=== PATIENT | male | born 1940 | race Caucasian/White ===

== ENCOUNTER → 2016-11-19 | Outpatient (CLI) | payer MEDICARE, BC ==
--- NOTE | 2016-11-19 10:24 | US ---
EXAMINATION TYPE: US renal artery duplex completa DATE OF EXAM: 11/19/2016 COMPARISON: CT CLINICAL HISTORY: E11.59 Type II diabetes/I10 hypertension. MEASUREMENTS: RENAL SIZE: Rt Kidney: 13.7 x 5.7 x 5.8 cm Lt Kidney: 15.9 x 7.4 x 6.7 RESISTANCE INDEX Right: 0.64 Left: 0.64 RA/AO RATIO (< 3.5 ) Right: 2.2 Left: 2.0 RA VELOCITY ( < 180 cm/s) Right: 163 Left: 156 patient states right renal stent. Limited vis due to patient body habitus. No ultrasound evidence for renal artery stenosis. Good upstroke on segmentals at renal hilum. Low resistive waveforms throughou t. IMPRESSION: Study limited by patient morphology demonstrates no evidence of renal artery stenosis.
== END | disposition home or self-care (01) ==
LOC: RADUSMAIN 08:53
PROVIDERS: ATTEND Internal Medicine Cardiovascular Disease
DX: E11.59 Type 2 diabetes mellitus with other circulatory complications (principal); I10 Essential (primary) hypertension; I87.2 Venous insufficiency (chronic) (peripheral)
CPT/HCPCS: 93975

== ENCOUNTER → 2019-05-06 | Outpatient (CLI) | payer MEDICARE, BC ==
--- NOTE | 2019-05-06 21:28 | CONS ---
CONSULTATION DATE OF SERVICE: 05/06/2019 79-year-old gentleman has been re-evaluated in Sleep Center for obstructive sleep apnea- hypopnea syndrome. HISTORY OF PRESENT ILLNESS/SLEEP WAKE EVALUATION: The patient has history of obstructive sleep apnea for about 8 years. For that time, he is using his CPAP equipment every night for the whole night. Recently, his CPAP unit started to work properly. SLEEP SCHEDULE: His sleep schedule from 9:30 pm until 4:30 am. FALLING ASLEEP: He does not have any problem with falling asleep, although has TV set in bedroom. DURING SLEEP: Usually sleeps on the side position. He wakes up from sleep 2 times with nocturia. DURING THE DAY/SLEEP WAKE EVALUATION: During the day, he may have 1 nap at 1:00 pm. [place] Sleepiness Scale is 7. PAST MEDICAL HISTORY: Positive for hypertension, coronary artery disease, atrial fibrillation, hyperlipidemia, diabetes mellitus, a bladder carcinoma. PAST SURGICAL HISTORY: CABG, insertion of permanent pacemaker, and surgery for bladder CA in 1984. MEDICATIONS: Cozaar, Neurontin, Lopressor, glipizide, Eliquis, Plavix, Norvasc, Lipitor, iron supplement, . SOCIAL HISTORY: The patient quit smoking in 1981. Alcohol consumption up to 2 times per week. FAMILY HISTORY: Hyperlipidemia, cancer, diabetes. REVIEW OF SYSTEMS: Occasional awakenings from sleep. PHYSICAL EXAM: A gentleman without distress. BP 138/79, HR 73, RR 18, height 6 feet 0, weight 294.6, body mass index 39.6, temperature 98.1. Oxygen saturation at room air 95%. HEENT: Oropharynx extremely low position of soft palate. Mallampati 3 to 4. Slight restriction of nasal breathing. NECK: Supple, no JVD. Thyroid is not palpable. LUNGS: Clear to percussion and to auscultation. Good air exchange. No wheezing or rhonchi. HEART: S1, S2 regular. No murmurs, gallops, or rubs. ABDOMEN: Obese. Soft and nontender. Bowel sounds are present. No organomegaly appreciated. EXTREMITIES: Tendency for swelling of ankles. CHECKER: Awake, alert, and oriented X3. Cranial nerves 2 to 7 intact. There is no fasciculation or atrophy. noted. No focal deficits observed. IMPRESSION: 1. Obstructive sleep apnea-hypopnea syndrome for many years. The patient continued to use his CPAP equipment. At present, his CPAP unit is not working properly. 2. Extremely low position of soft palate, Mallampati 4, wide neck, 17-1/2 inches in circumference, awakening from sleep with nocturia. Obstructive sleep apnea- hypopnea syndrome. 3. Obesity, BMI 39.6. 4. Hypertension. 5. Coronary artery disease, status post coronary artery bypass grafting. 6. History of atrial fibrillation. 7. Status post permanent pacemaker insertion. 8. Hyperlipidemia. 9. Diabetes mellitus. 10.History of bladder carcinoma, status post surgical treatment in 1984. PLAN: 1. Prescription to replace CPAP unit replacement for the BiPAP unit. 2. The patient should continue to use BiPAP equipment every night for the whole night. 3. Losing weight. 4. Sleep hygiene with regular time in bed for at least 8 hours. 5. No driving if feeling sleepiness. 6. Followup visit in 1 month after patient will get new BiPAP unit to evaluate clinical response of treatment, compliance with treatment and make any necessary adjustments related to mask fitting, pressure and humidification. Thank you very much for allowing me to participate in management of your patient. Sincerely, Jose Antonio Stephens MD, PhD, FAASM Diplomat of [employer] Proposal Consultant of [facility] [place] MMODL / TYLORN: [id number] /
== END ==
LOC: SLEEP 15:18
PROVIDERS: ATTEND Internal Medicine
DX: G47.33 Obstructive sleep apnea (adult) (pediatric) (principal); E66.9 Obesity, unspecified; I25.10 Atherosclerotic heart disease of native coronary artery without angina pectoris; I48.91 Unspecified atrial fibrillation; E78.5 Hyperlipidemia, unspecified; E11.9 Type 2 diabetes mellitus without complications; C67.9 Malignant neoplasm of bladder, unspecified; I10 Essential (primary) hypertension; Z98.890 Other specified postprocedural states; Z95.5 Presence of coronary angioplasty implant and graft; Z95.0 Presence of cardiac pacemaker; Z68.39 Body mass index [BMI] 39.0-39.9, adult; Z99.89 Dependence on other enabling machines and devices; Z87.891 Personal history of nicotine dependence; Z79.899 Other long term (current) drug therapy; Z79.01 Long term (current) use of anticoagulants
CPT/HCPCS: 99211

== ENCOUNTER → 2019-08-26 | Outpatient (CLI) | payer MEDICARE, BC ==
--- NOTE | 2019-08-26 16:19 | PN ---
PROGRESS NOTE DATE OF SERVICE: 08/26/2019 This patient is a 79-year-old gentleman who has been followed in Sleep Center for treatment of obstructive sleep apnea-hypopnea syndrome. Recently he received a new CPAP machine. Today is his first visit after starting to use his new CPAP unit. The patient is able to use CPAP equipment every night for the whole night without problems related to mask fitting, pressure or humidification. He likes the new machine. [place] Sleepiness Scale today is 6. I checked his BiPAP unit. Pressure is 11/7 cm of water. The patient uses it every night, and 28/30 nights for more than 4 hours during the last month, with average usage 6.8 hours per night. Leak is slightly high 35 L/minute. Possibly he opens his mouth. He is using a nasal mask. At the same time, apnea-hypopnea index is only 2.8, which is absolutely perfect. MEDICATIONS: Cozaar, Eliquis, metoprolol, Plavix, glipizide, hydrocodone, Norvasc, Lipitor, hygroton and Trilipix. PHYSICAL EXAMINATION: GENERAL: A pleasant patient in no distress. VITAL SIGNS: BP 134/74, HR 78, RR 15, height 6 feet 1/4 inch, weight 295.2 pounds, BMI 39.7, temperature 97.2, oxygen saturation at room air 96%. HEENT: PERRLA, EOMI. Evaluation of oropharynx showed tongue protrudes midline. Low position of soft palate. Mallampati III to IV. NECK: Supple. No JVD. Thyroid is not palpable. LUNGS: Clear to percussion and to auscultation. Good air exchange. No wheezing or rhonchi. HEART: S1, S2 regular. No murmurs, gallops or rubs. ABDOMEN: Obese. EXTREMITIES: No clubbing or cyanosis. LEG MAN: Awake, alert, and oriented X3. Cranial nerves 2 to 7 intact. There is no fasciculation or atrophy. noted. No focal deficits observed. IMPRESSION: 1. Obstructive sleep apnea-hypopnea syndrome. Patient demonstrated practically 100% compliance with treatment, benefitting from treatment. Normal respiration on BiPAP. 2. Obesity. 3. Hypertension. 4. Coronary artery disease, status post coronary artery bypass grafting. 5. History of atrial fibrillation. 6. Status post permanent pacemaker insertion. 7. Hyperlipidemia. 8. Diabetes mellitus. 9. History of bladder carcinoma, status post surgical treatment in 1984. PLAN: 1. Patient will continue to use BiPAP equipment every night for the whole night. 2. Watching and losing weight. 3. Sleep hygiene with regular time in bed for at least 7-1/2 hours. 4. No driving if feeling any sleepiness. 5. I will maintain all necessary prescriptions for CPAP supplies, including mask, tube, filters. Thank you very much for allowing me to participate in the management of your patient. Sincerely, Jose Antonio Stephens MD, PhD, FAASM Diplomat of [employer] Bottle Packer of [facility] [place] MMODL / IJN: [id number] /
== END | disposition home or self-care (01) ==
LOC: SLEEP 14:23
PROVIDERS: ATTEND Internal Medicine
DX: G47.33 Obstructive sleep apnea (adult) (pediatric) (principal); E66.9 Obesity, unspecified; I10 Essential (primary) hypertension; I25.10 Atherosclerotic heart disease of native coronary artery without angina pectoris; E78.5 Hyperlipidemia, unspecified; E11.9 Type 2 diabetes mellitus without complications; Z85.51 Personal history of malignant neoplasm of bladder; Z86.79 Personal history of other diseases of the circulatory system; Z95.0 Presence of cardiac pacemaker; Z95.1 Presence of aortocoronary bypass graft; Z68.39 Body mass index [BMI] 39.0-39.9, adult; Z79.84 Long term (current) use of oral hypoglycemic drugs; Z79.1 Long term (current) use of non-steroidal anti-inflammatories (NSAID); Z79.891 Long term (current) use of opiate analgesic; Z79.899 Other long term (current) drug therapy

== ENCOUNTER → 2020-03-02 | Outpatient (CLI) | payer MEDICARE, BC ==
--- NOTE | 2020-03-03 00:58 | SFUN ---
SLEEP CENTER FOLLOW UP NOTE DATE OF SERVICE: 03/02/2020 This 80-year-old gentleman who has been followed in Sleep Center for treatment of obstructive sleep apnea-hypopnea syndrome. The patient successfully continues to use his CPAP equipment. He likes his BiPAP unit. [place] Sleepiness Scale today is 9. I checked his BiPAP unit. Pressure is 11/7 cm of water. Usage is 30 out of 30 nights for more than 4 hours. Average usage 8.9 hours per night. Leak is 30 L/minute which is slightly high but less than during the previous visit. Apnea-hypopnea index 1.2, which is normal. MEDICATIONS: Lipitor 40 mg, Cozaar 100 mg once a day, 25 mg once a day, Lopressor ER 50 mg once daily, Eliquis 5 mg b.i.d., glipizide ER 10 mg once a day, Norvasc 5 mg once a day at bedtime, fenofibrate 150 mg once a day at bedtime, Plavix 75 mg once a day, iron supplement. PHYSICAL EXAMINATION: GENERAL: Patient in no distress. VITAL SIGNS: BP 134/70, HR 60, RR 15, height 6 feet and a 1/2 inch, weight 291.2, BMI 38.9, temperature 98.1, oxygen saturation at room air 96%. HEENT: PERRLA, EOMI. Oropharynx low position of soft palate, Mallampati 3-4. NECK: Supple, no JVD. Thyroid is not palpable. LUNGS: Clear to percussion and to auscultation. Good air exchange. No wheezing or rhonchi. HEART: S1, S2 regular. No murmurs, gallops, or rubs. ABDOMEN: Obese. EXTREMITIES: No clubbing or cyanosis. RENTAL SALESPERSON: Awake, alert, and oriented X3. Cranial nerves 2 to 7 intact. There is no fasciculation or atrophy. noted. No focal deficits observed. IMPRESSION: 1. Obstructive sleep apnea-hypopnea syndrome. Patient demonstrated good compliance with treatment benefitting from treatment on BiPAP. 2. Hypertension. 3. Coronary artery disease, status post coronary artery bypass grafting. 4. Obesity. 5. History of atrial fibrillation. 6. Status post permanent pacemaker insertion. 7. Hyperlipidemia. 8. Diabetes mellitus. 9. History of bladder cancer, status post surgical treatment in 1984. PLAN: 1. Patient will continue to use PAP equipment every night for the whole night. 2. Sleep hygiene with regular time in bed for at least 7-1/2 to 8 hours. 3. Precautions related to driving. No driving if feeling sleepiness. 4. I will maintain all necessary prescription for PAP supplies including mask, tube, filters. 5. Watching weight. 6. No driving if feeling sleepiness. 7. Follow-up visit in 6 months or earlier if patient has any problems. Thank you very much for allowing me to participate in management of your patient. Sincerely, Jose Antonio Stephens MD, PhD, FAASM Diplomat of [place] [employer] [place] [employer] Dragger Out of [facility] [place] MMODL / IJN: [id number] /
== END | disposition home or self-care (01) ==
LOC: SLEEP 13:06
PROVIDERS: ATTEND Internal Medicine
DX: G47.33 Obstructive sleep apnea (adult) (pediatric) (principal); I10 Essential (primary) hypertension; I25.10 Atherosclerotic heart disease of native coronary artery without angina pectoris; E11.9 Type 2 diabetes mellitus without complications; E78.5 Hyperlipidemia, unspecified; E66.9 Obesity, unspecified; Z95.0 Presence of cardiac pacemaker; Z95.1 Presence of aortocoronary bypass graft; Z86.79 Personal history of other diseases of the circulatory system; Z85.51 Personal history of malignant neoplasm of bladder; Z99.89 Dependence on other enabling machines and devices

== ENCOUNTER → 2021-02-15 | Outpatient (CLI) | payer MEDICARE, BC ==
--- NOTE | 2021-02-15 18:22 | SFUN ---
SLEEP CENTER FOLLOW UP NOTE DATE OF SERVICE: 02/15/2021 This 81-year-old gentleman has been followed in Sleep Center for treatment of obstructive sleep apnea-hypopnea syndrome. The patient continues to use his CPAP equipment every night. [place] Sleepiness Scale is reduced to 6 compared to his previous visit. I checked his BiPAP unit. Pressure is 11/7 cm of water. Usage is 100% of nights for more than 4 hours, average 7.2 hours per night. Leak is 19 L/minute, which is borderline. Apnea-hypopnea index is only 1.4, which is perfect. CURRENT MEDICATIONS: 1. Losartan 100 mg once a day. 2. Pioglitazone 25 mg once a day. 3. Glipizide 10 mg once a day. 4. Metoprolol 25 mg once a day. 5. Eliquis 5 mg twice a day. 6. Norvasc 5 mg once a day. 7. Atorvastatin 40 mg once a day. 8. Fenofibrate 150 mg once a day. 9. Plavix 75 mg once a day. PHYSICAL EXAMINATION: GENERAL: Pleasant patient in no distress. VITAL SIGNS: BP 124/69, HR 81, RR 18, height 6 feet 1 inch, weight 291.2, temperature 97.4, oxygen saturation at room air 94%. Body mass index 38.6. HEENT: PERRLA, EOMI, evaluation of oropharynx showed tongue protrudes midline. Low position of soft palate; Mallampati III to IV. NECK: Supple, no JVD. Thyroid is not palpable. LUNGS: Clear to percussion and to auscultation. Good air exchange. No wheezing or rhonchi. HEART: S1, S2 regular. No murmurs, gallops, or rubs. ABDOMEN: Obese. EXTREMITIES: No clubbing or cyanosis. FRUIT AND VEGETABLE PARER: Awake, alert, and oriented X3. Cranial nerves 2 to 7 intact. There is no fasciculation or atrophy. noted. No focal deficits observed. IMPRESSION: 1. Obstructive sleep apnea-hypopnea syndrome. Patient demonstrated 100% compliance with treatment with BiPAP. Full normalization of respiration on treatment with BiPAP. 2. Hypertension. 3. Coronary artery disease, status post coronary artery bypass grafting. 4. Obesity. 5. History of atrial fibrillation. 6. Status post permanent pacemaker insertion. 7. Hyperlipidemia. 8. Diabetes mellitus. 9. History of bladder carcinoma, status post surgical treatment in 1984. PLAN: 1. Patient will continue to use PAP equipment every night for the whole night. 2. Sleep hygiene with regular time in bed for at least 7-1/2 to 8 hours. 3. Precautions related to driving. No driving if feeling sleepiness. 4. I will maintain all necessary prescription for PAP supplies including mask, tube, filters. 5. Aggressive losing weight program. 6. Follow-up visit in 6 months or earlier if patient has any problems. I spent 30 minutes with patient and doing documentation. Thank you very much for allowing me to participate in the management of your patient. Sincerely, Jose Antonio Stephens MD, PhD, FAASM Diplomat of [place] [employer] Sleep Medicine Board of [place] Board of Internal Medicine Permit Review Assistant of [facility] [place] MMODL / ELIDIA: [id number] /
== END ==
LOC: SLEEP 13:23
PROVIDERS: ATTEND Internal Medicine
DX: G47.33 Obstructive sleep apnea (adult) (pediatric) (principal); I10 Essential (primary) hypertension; I25.10 Atherosclerotic heart disease of native coronary artery without angina pectoris; Z95.1 Presence of aortocoronary bypass graft; E66.9 Obesity, unspecified; I48.91 Unspecified atrial fibrillation; E78.5 Hyperlipidemia, unspecified; E11.9 Type 2 diabetes mellitus without complications; Z85.51 Personal history of malignant neoplasm of bladder; Z99.89 Dependence on other enabling machines and devices; Z95.0 Presence of cardiac pacemaker; Z68.38 Body mass index [BMI] 38.0-38.9, adult; Z79.84 Long term (current) use of oral hypoglycemic drugs; Z79.899 Other long term (current) drug therapy; Z79.02 Long term (current) use of antithrombotics/antiplatelets; Z87.891 Personal history of nicotine dependence; Z88.6 Allergy status to analgesic agent

== ENCOUNTER → 2021-05-02 | Outpatient (CLI) | payer MEDICARE, BC ==
--- NOTE | 2021-05-02 20:37 | SFUN ---
SLEEP CENTER FOLLOW UP NOTE DATE OF SERVICE: 05/02/2021 81-year-old gentleman has been followed in Sleep Center for treatment of obstructive sleep apnea-hypopnea syndrome. About 1 month ago, patient's unit has been replaced with new one. Today is his first visit after he received new BiPAP equipment. The patient is able to use BiPAP equipment every night for the whole night. He likes his new machine. It is not noisy. He does not snore. [place] Sleepiness Scale today is 5, which is totally normal. I checked BiPAP unit. Pressure is 11/7 cm of water. The patient is using the machine 100% of nights, 7.8 hours per night. Leak is 19 L/minute. Apnea-hypopnea index is 2.1, which is perfect. CURRENT MEDICATIONS: Losartan 100 mg once a day, glipizide 10 mg once a day, pioglitazone 25 mg once a day, metoprolol 25 mg once a day, Eliquis 5 mg twice a day, Norvasc 5 mg once a day, atorvastatin 40 mg once a day, fenofibrate 150 mg once a day, Plavix 75 mg once a day. PHYSICAL EXAMINATION: GENERAL: Patient in no distress. BP 136/73, HR 82, RR 16, weight 296.8, temperature 97.0, Oxygen saturation at room air 95%. Oropharynx: Low position of soft palate, Mallampati 3-4. NECK: Supple, no JVD. Thyroid is not palpable. LUNGS: Clear to percussion and to auscultation. Good air exchange. No wheezing or rhonchi. HEART: S1, S2 regular. No murmurs, gallops, or rubs. ABDOMEN: Obese. Soft and nontender. Bowel sounds are present. No organomegaly appreciated. EXTREMITIES: No clubbing or cyanosis. PIE FILLER: Awake, alert, and oriented X3. Cranial nerves 2 to 7 intact. There is no fasciculation or atrophy. noted. No focal deficits observed. IMPRESSION: 1. Obstructive sleep apnea-hypopnea syndrome. Patient started to use new BiPAP equipment 100% compliance. Totally normal respiration on BiPAP. 2. Coronary artery disease, status post coronary artery bypass grafting. 3. Hypertension. 4. Obesity. 5. History of atrial fibrillation. 6. Status post permanent pacemaker insertion. 7. Hyperlipidemia. 8. Diabetes mellitus. 9. History of bladder cancer status post surgical treatment in 1984. PLAN: 1. Patient will continue to use PAP equipment every night for the whole night. 2. Sleep hygiene with regular time in bed for at least 7-1/2 to 8 hours. 3. Precautions related to driving. No driving if feeling sleepiness. 4. I will maintain all necessary prescription for PAP supplies including mask, tube, filters. 5. Watching weight. 6. Follow-up visit in 6 months or earlier if patient has any problems. Thank you very much for allowing me to participate in management of your patient. Sincerely, Jose Antonio Stephens MD, PhD, FAASM Diplomat of [place] [employer]ties Sleep Medicine Board of [place] Board of Internal Medicine Bank Vault Attendant of [facility] [place] MMODL / TYLORN: [id number] /
== END ==
LOC: SLEEP 10:55
PROVIDERS: ATTEND Internal Medicine
DX: G47.33 Obstructive sleep apnea (adult) (pediatric) (principal); I25.10 Atherosclerotic heart disease of native coronary artery without angina pectoris; I10 Essential (primary) hypertension; E66.9 Obesity, unspecified; E78.5 Hyperlipidemia, unspecified; E11.9 Type 2 diabetes mellitus without complications; I48.91 Unspecified atrial fibrillation; Z99.89 Dependence on other enabling machines and devices; Z95.1 Presence of aortocoronary bypass graft; Z95.0 Presence of cardiac pacemaker; Z85.51 Personal history of malignant neoplasm of bladder; Z79.01 Long term (current) use of anticoagulants; Z79.84 Long term (current) use of oral hypoglycemic drugs; Z79.899 Other long term (current) drug therapy; Z88.6 Allergy status to analgesic agent; Z87.891 Personal history of nicotine dependence

== ENCOUNTER → 2021-09-27 | Outpatient (CLI) | payer MEDICARE, BC ==
--- NOTE | 2021-09-27 13:07 | SFUN ---
SLEEP CENTER FOLLOW UP NOTE DATE OF SERVICE: 09/27/2021 This 81-year-old gentleman has been followed in Sleep Center for treatment of obstructive sleep apnea-hypopnea syndrome. The patient continues to use his BiPAP equipment every night, getting his supplies on time. [place] Sleepiness Scale today is 6, which is in normal range. I checked his BiPAP unit. Pressure is 11/7 cm of water. Usage is 30/30 nights for more than 4 hours, average 8.3 hours per night. Leak is borderline at 31 L/minute. Apnea- hypopnea index is 1.7, which is normal. MEDICATIONS: 1. Cozaar 100 mg once a day. 2. Chlorthalidone 25 mg once a day. 3. Metoprolol 50 mg once a day. 4. Eliquis 5 mg twice a day. 5. Glipizide 10 mg once a day. 6. Norvasc 5 mg once a day. 7. Lipitor 40 mg once a day. PHYSICAL EXAMINATION: GENERAL: Pleasant patient in no distress. VITAL SIGNS: BP 155/71, HR 82, RR 18, weight 301.8 pounds. The patient's weight has increased by 5 pounds. Temperature 97.1, oxygen saturation at room air 94%. HEENT: PERRLA, EOMI, evaluation of oropharynx showed tongue protrudes midline. Low position of soft palate; Mallampati III to IV. NECK: Supple, no JVD. Thyroid is not palpable. LUNGS: Clear to percussion and to auscultation. Good air exchange. No wheezing or rhonchi. HEART: S1, S2 regular. No murmurs, gallops, or rubs. ABDOMEN: Obese. EXTREMITIES: No clubbing or cyanosis. JUNIOR ACCOUNT EXECUTIVE: Awake, alert, and oriented X3. Cranial nerves 2 to 7 intact. There is no fasciculation or atrophy. noted. No focal deficits observed. IMPRESSION: 1. Obstructive sleep apnea-hypopnea syndrome. Patient demonstrated 100% compliance with treatment, benefitting from BiPAP treatment. Normal respiration on BiPAP. 2. Hypertension. 3. Coronary artery disease, status post coronary artery bypass grafting. 4. Obesity. 5. History of atrial fibrillation. 6. Status post permanent pacemaker insertion. 7. Hyperlipidemia. 8. Diabetes mellitus. 9. Status post bladder cancer, status post surgical treatment in 1984. PLAN: 1. Patient will continue to use PAP equipment every night for the whole night. 2. Sleep hygiene with regular time in bed for at least 7-1/2 to 8 hours. 3. Precautions related to driving. No driving if feeling sleepiness. 4. I will maintain all necessary prescription for PAP supplies including mask, tube, filters. 5. Watching weight. 6. Follow-up visit in 6 months or earlier if patient has any problems. Thank you very much for allowing me to participate in the management of your patient. Sincerely, Jose Antonio Stephens MD, PhD, FAASM Diplomat of [place] [employer] Sleep Medicine Board of [place] [employer] of Internal Medicine Collection Advisor of [facility] [place] MMODL / IJN: [id number] /
== END ==
LOC: SLEEP 09:45
PROVIDERS: ATTEND Internal Medicine
DX: G47.33 Obstructive sleep apnea (adult) (pediatric) (principal); I10 Essential (primary) hypertension; Z99.89 Dependence on other enabling machines and devices; I25.10 Atherosclerotic heart disease of native coronary artery without angina pectoris; E66.9 Obesity, unspecified; I48.91 Unspecified atrial fibrillation; E78.5 Hyperlipidemia, unspecified; E11.9 Type 2 diabetes mellitus without complications; Z98.890 Other specified postprocedural states; Z95.1 Presence of aortocoronary bypass graft; Z95.0 Presence of cardiac pacemaker; Z79.01 Long term (current) use of anticoagulants; Z79.84 Long term (current) use of oral hypoglycemic drugs; Z88.6 Allergy status to analgesic agent; Z88.8 Allergy status to other drugs, medicaments and biological substances; Z87.891 Personal history of nicotine dependence

== ENCOUNTER → 2022-10-10 | Outpatient (CLI) | payer MEDICARE, BC ==
--- NOTE | 2022-10-10 10:51 | P.PN ---
Subjective DATE: 10/10/2022 FOLLOW UP VISIT. Patient with obstructive sleep apnea hypopnea syndrome return to sleep center for follow-up visit. Information from previous visit have been reviewed. Patient is using BPAP equipment every night for the whole night, getting PAP supplies in time. The patient does not have significant problems with the mask, BPAP unit and humidification. [place] sleepiness scale is 6, which is normal. I checked information from PAP unit and explained to the patient. BPAP unit pressure 11/7 cm H2O. Usage is 100 % for more then 4 hours, average 7.9 hours per night. Leak is borderline 34 l/m. Apnea Hypopnea Index is 3.3, which is normal. MEDICATIONS:1. Metoprolol 50 mg once a day 2. Lipitor 40 mg half of the tablet a day 3. Fenofibrate 135 mg once a day 4. Glipizide 10 mg once a day 5. Losartan 100 mg once a day 6. Amlodipine 5 mg once a day 7. Eliquis 5 mg twice a day During physical exam: GENERAL: A pleasant patient without any distress. VITAL SIGNS: BP 156/77, HR 83, RR 16, weight 299.8, temperature 97.7, oxygen saturation at room air 97 % . HEENT: PERRLA, EOMI.low position of soft palate, Mallapati 3-4 . NECK: Supple. No JVD. LUNGS: Clear to percussion and to auscultation. Good air exchange. No wheezing or rhonchi. HEART: S1, S2 regular. ABDOMEN: Soft and nontender. Slightly obese EXTREMITIES: No clubbing or cyanosis. ORIENTATION & MOBILITY SPECIALIST: Awake, alert, and oriented x3. No focal deficit. Impressions: 1. Obstructive sleep apnea-hypopnea syndrome. Patient demonstrated great compliance with treatment, benefiting from treatment. 2. Coronary artery disease, status post CABG. 3. Hypertension. 4. Obesity, BMI 39.5. 5. History of atrial fibrillation. 6. Status post primary pacemaker insertion. 7. Diabetes mellitus. 8. Hyperlipidemia. 9. Status post surgical treatment for bladder CA in 1984. Plan: 1. Continue using PAP equipment every night for the whole night. 2. To change air filter at least 1-2 times per month. 3. PAP unit should stay lower then position of the head. 4. Advised patient to remove all remaining water from humidifier canister daily and make it dry after each usage. Refill canister with fresh distilled water before each usage. 5. Sleep hygiene with regular time in bed for at least 8 hours. 6. Precautions related to driving. No driving if feel any sleepiness. 7. I will maintain prescription for PAP supplies including mask, tube, filters. 8. Follow up visit in 6 months or earlier if patient has any problems. 9. Watching and losing weight. Thank you very much for allowing me to participate in the management of your patient. Jose Antonio Stephens MD, PhD, FAASM. Diplomat of [place] Board [employer] Medicine, Sleep Medicine Board by [place] Board of Internal Medicine Heeler of [facility] [place]
== END ==
LOC: SLEEP 10:07
PROVIDERS: ATTEND Internal Medicine
DX: G47.33 Obstructive sleep apnea (adult) (pediatric) (principal); I25.10 Atherosclerotic heart disease of native coronary artery without angina pectoris; E11.9 Type 2 diabetes mellitus without complications; E66.9 Obesity, unspecified; E78.5 Hyperlipidemia, unspecified; I10 Essential (primary) hypertension; I48.91 Unspecified atrial fibrillation; R63.4 Abnormal weight loss; Z68.39 Body mass index [BMI] 39.0-39.9, adult; Z79.01 Long term (current) use of anticoagulants; Z79.84 Long term (current) use of oral hypoglycemic drugs; Z79.899 Other long term (current) drug therapy; Z85.51 Personal history of malignant neoplasm of bladder; Z95.0 Presence of cardiac pacemaker; Z95.1 Presence of aortocoronary bypass graft; Z99.89 Dependence on other enabling machines and devices; Z88.6 Allergy status to analgesic agent; Z87.891 Personal history of nicotine dependence
CPT/HCPCS: 99212

== ENCOUNTER → 2023-10-22 | Outpatient (CLI) | payer MEDICARE, BC ==
[2023-10-22 12:09] VITALS: BP 129/76; PULSE 80; RESP 12; TEMP 97.7
--- NOTE | 2023-10-22 12:34 | P.PN ---
Subjective DATE: 10/22/2023 FOLLOW UP VISIT. Patient with obstructive sleep apnea hypopnea syndrome return to sleep center for follow-up visit. Information from previous visit have been reviewed. Patient is using BPAP equipment every night for the whole night, getting PAP supplies in time. The patient does not have significant problems with the mask, PAP unit and humidification. [place] sleepiness scale is 6, which is normal. I checked information from BPAP unit. BPAP unit pressure 11/7 cm H2O. Usage is 100% for more then 4 hours, average 8.2 hours per night. Leak is slightly increased to 33.5 l/m. Patient did not change his mask recently. Apnea Hypopnea Index is 2.0, which is normal. MEDICATIONS:1. Losartan 100 mg once a day 2. Metoprolol 50 mg once a day 3. Eliquis 5 mg once a day 4. Amlodipine 5 mg once a day 5. Chlorthalidone 25 mg once a day 6. Atorvastatin 40 mg once a day During physical exam: GENERAL: A pleasant patient without any distress. VITAL SIGNS: Please see below, weight 283.0 pounds. HEENT: PERRLA, EOMI.low position of soft palate, Mallapati 3-4 . NECK: Supple. No JVD. LUNGS: Clear to percussion and to auscultation. Good air exchange. No wheezing or rhonchi. HEART: S1, S2 regular. ABDOMEN: Soft and nontender.[] EXTREMITIES: No clubbing or cyanosis. CLOTH SHRINKER: Awake, alert, and oriented x3. No focal deficit. Impressions: 1. Obstructive sleep apnea-hypopnea syndrome. Patient demonstrated great compliance with treatment, benefiting from treatment. 2. Hypertension. 3. Coronary artery disease, status post CABG. 4. Obesity, patient lost 16 pounds comparing with the previous visit. 5. History of atrial fibrillation. 6. Status post permanent pacemaker insertion. 7. Diabetes mellitus. 8. Hyperlipidemia. 9. Status post surgical treatment for bladder cancer in 1984. Plan: 1. Continue using PAP equipment every night for the whole night. 2. To change air filter at least 1-2 times per month. 3. PAP unit should stay lower then position of the head. 4. Advised patient to remove all remaining water from humidifier canister daily and make it dry after each usage. Refill canister with fresh distilled water before each usage. 5. Sleep hygiene with regular time in bed for at least 8 hours. 6. Precautions related to driving. No driving if feel any sleepiness. 7. I will maintain prescription for PAP supplies including mask, tube, filters. 8. Watching and continue losing weight. 9. Follow up visit in 6 months or earlier if patient has any problems. Thank you very much for allowing me to participate in the management of your patient. Jose Antonio Stephens MD, PhD, FAASM. Diplomat of [employer], Sleep Medicine Board by [employer] [facility] Objective - Vital Signs Vital signs: Vital Signs Temp 97.7 F 10/22/23 11:44 Pulse 80 10/22/23 11:44 Resp 12 10/22/23 11:44 BP 129/76 10/22/23 11:44 Pulse Ox 96 10/22/23 11:44 FiO2 Intake & Output 10/21/23 10/22/23 10/22/23 18:59 06:59 18:59 Weight 128.367 kg
== END ==
LOC: 3 N SLEEP 11:18
PROVIDERS: ATTEND Internal Medicine
DX: G47.33 Obstructive sleep apnea (adult) (pediatric) (principal); I10 Essential (primary) hypertension; I25.10 Atherosclerotic heart disease of native coronary artery without angina pectoris; E66.9 Obesity, unspecified; E11.9 Type 2 diabetes mellitus without complications; E78.5 Hyperlipidemia, unspecified; I48.91 Unspecified atrial fibrillation; Z85.51 Personal history of malignant neoplasm of bladder; Z98.890 Other specified postprocedural states; Z95.0 Presence of cardiac pacemaker; Z79.899 Other long term (current) drug therapy; Z79.01 Long term (current) use of anticoagulants; Z95.1 Presence of aortocoronary bypass graft; Z99.89 Dependence on other enabling machines and devices; Z88.6 Allergy status to analgesic agent; Z79.84 Long term (current) use of oral hypoglycemic drugs; Z79.85 Long-term (current) use of injectable non-insulin antidiabetic drugs; Z87.891 Personal history of nicotine dependence; Z68.38 Body mass index [BMI] 38.0-38.9, adult
CPT/HCPCS: 99212

== ENCOUNTER → 2024-06-03 | Outpatient (CLI) | payer MEDICARE, BC ==
[2024-06-03 11:19] VITALS: BP 157/80; PULSE 82; RESP 16; TEMP 97.5
--- NOTE | 2024-06-03 11:45 | P.PROGSL ---
Subjective DATE: 06/03/2024 FOLLOW UP VISIT. Patient with obstructive sleep apnea hypopnea syndrome return to sleep center for follow-up visit. Information from previous visit have been reviewed. Patient is using PAP equipment every night for the whole night, getting PAP supplies in time. The patient does not have significant problems with the mask, PAP unit and humidification. [place] sleepiness scale is 6, which is normal. I checked information from PAP unit. BPAP unit pressure 11/7 cm H2O. Usage is 100% for more then 4 hours, average 7.7 hours per night. Leak is slightly increased to 29 l/m. Apnea Hypopnea Index is 2.0, which is normal. MEDICATIONS have been reviewed, please see below. During physical exam: GENERAL: A pleasant patient without any distress. VITAL SIGNS: Please see below, weight is 281 lbs. HEENT: PERRLA, EOMI.low position of soft palate, Mallapati 34. NECK: Supple. No JVD. LUNGS: Clear to percussion and to auscultation. Good air exchange. No wheezing or rhonchi. HEART: S1, S2 regular. ABDOMEN: Soft and nontender.[] EXTREMITIES: No clubbing or cyanosis. EMERGENCY MEDICINE PHYSICIAN: Awake, alert, and oriented x3. No focal deficit. Impressions: 1. Obstructive sleep apnea-hypopnea syndrome. Patient demonstrated great compliance with treatment, benefiting from treatment. 2. Obesity, BMI 38.1, patient lost 2 pounds comparing with previous visit. 3. Atrial fibrillation. 4. Hypertension. 5. Coronary artery disease, status post CABG. 6. Status post permanent pacemaker insertion. 7. Diabetes mellitus, according to patient hemoglobin A1c is 6.6. 8. Status post surgical treatment for bladder cancer in 1984. 9. Hyperlipidemia. Plan: 1. Continue using PAP equipment every night for the whole night. 2. Sleep hygiene with regular time in bed for at least 7.5-8 hours 3. PAP unit should stay lower then position of the head. 4. Advised patient to remove all remaining water from humidifier canister daily and make it dry after each usage. Refill canister with fresh distilled water before each usage. 5. Watching and losing weight. 6. Precautions related to driving. No driving if feel any sleepiness. 7. I will maintain prescription for PAP supplies including mask, tube, filters. 8. Follow up visit in 8 months or earlier if patient has any problems. Thank you very much for allowing me to participate in the management of your patient. Jose Antonio Stephens MD, PhD, FAASM. Diplomat of [employer], Sleep Medicine Board by [employer] Research Administrator of [facility] [place] Objective - Vital Signs Vital Signs: Vital Signs Temp 97.5 F L 06/03/24 11:18 Pulse 82 06/03/24 11:18 Resp 16 06/03/24 11:18 BP 157/80 06/03/24 11:18 Pulse Ox 95 06/03/24 11:18 FiO2 Intake & Output 06/02/24 06/03/24 06/03/24 18:59 06:59 18:59 Weight 127.459 kg Home Medications: Home Medications Medication Instructions Recorded Confirmed Type Atorvastatin [Lipitor] 40 mg PO HS 05/04/15 06/03/24 History Ezetimibe [Zetia] 10 mg PO DAILY 05/04/15 05/04/15 History Lansoprazole [Prevacid] 30 mg PO DAILY 05/04/15 05/04/15 History Losartan/Hydrochlorothiazide 1 each PO DAILY 05/04/15 06/03/24 History [Hyzaar 100-25 Tablet] Nebivolol [Bystolic] 5 mg PO DAILY 05/04/15 05/04/15 History Nitroglycerin 0.2MG/Hr Patch 2 patch TRANSDERM Q24H 05/04/15 05/04/15 History [Nitro-Dur 0.2MG/Hr Patch] amLODIPine BESYLATE [Norvasc] 10 mg PO HS 05/04/15 06/03/24 History hydrALAZINE HCL [Apresoline] 25 mg PO BID 05/04/15 05/04/15 History metFORMIN HCL [Glucophage] 500 mg PO BID 05/04/15 05/04/15 History Apixaban [Eliquis] 5 mg PO DAILY 10/22/23 06/03/24 History Atorvastatin [Lipitor] 40 mg PO DAILY 10/22/23 06/03/24 History Chlorthalidone 25 mg PO 10/22/23 History Empagliflozin [Jardiance] 10 mg PO DAILY 10/22/23 History Fenofibrate,Micronized 134 mg PO DAILY 10/22/23 06/03/24 History [Fenofibrate] Metoprolol Succinate (ER) [Toprol 50 mg PO DAILY 10/22/23 06/03/24 History Xl] glipiZIDE [glipiZIDE ER] 10 mg PO DAILY 10/22/23 06/03/24 History
== END ==
LOC: 3 N SLEEP 11:03
PROVIDERS: ATTEND Internal Medicine
DX: G47.33 Obstructive sleep apnea (adult) (pediatric) (principal); E66.9 Obesity, unspecified; I48.91 Unspecified atrial fibrillation; I10 Essential (primary) hypertension; I25.10 Atherosclerotic heart disease of native coronary artery without angina pectoris; E78.5 Hyperlipidemia, unspecified; E11.9 Type 2 diabetes mellitus without complications; Z95.5 Presence of coronary angioplasty implant and graft; Z95.1 Presence of aortocoronary bypass graft; Z98.890 Other specified postprocedural states; Z85.51 Personal history of malignant neoplasm of bladder; Z99.89 Dependence on other enabling machines and devices; Z88.6 Allergy status to analgesic agent; Z79.01 Long term (current) use of anticoagulants; Z79.899 Other long term (current) drug therapy; Z79.84 Long term (current) use of oral hypoglycemic drugs; Z87.891 Personal history of nicotine dependence; Z68.38 Body mass index [BMI] 38.0-38.9, adult
CPT/HCPCS: 99212